=== PATIENT | male | born 1960 | race Caucasian/White ===

== ENCOUNTER 2018-05-06 08:11 | Day surgery (SDC) | payer BC, OTHER ==
[~2018-05-06 08:11] MED LIST: Lactated Ringers 1,000 ML IV SCH
[2018-05-06] MEDS ORDERED: Sodium Phosphate,Monobasic/Sodium Phosphate,Dibasic Enema 133 ML Bottle RECTAL ONE (08:55)
[2018-05-06] MEDS ORDERED: fentaNYL 100 MCG/2 ML SDV ONE (10:15)
[2018-05-06] MEDS ORDERED: Propofol 200 MG/20 ML SDV ONE ×2 (10:15→10:28)
[2018-05-06 11:36] VITALS: BP 135/93
--- NOTE | 2018-05-06 13:07 | OR ---
PREOPERATIVE DIAGNOSIS: Lower abdominal pain, blood in stool. POSTOPERATIVE DIAGNOSIS: Large pedunculated adenomatous polyp at 40 cm removed, sigmoid diverticulosis. PROCEDURE PROPOSED: Total flexible colonoscopy. PROCEDURE DONE: Total flexible colonoscopy with hot snare, polypectomy and tattooing. INDICATION: This is a 58-year-old gentleman, who has been having some lower abdominal pain and some blood streaked on his stools and he comes in now for recommended diagnostic colonoscopy. TECHNIQUE: The patient was brought to the endoscopy suite, placed in left lateral decubitus position. He was sedated per [employer] with propofol. The flexible video colonoscope was then passed transanal under visualization advanced to the cecum. Examination revealed normal ascending, transverse, and descending colon. In the sigmoid colon at about 40 cm had a very large bleeding friable, pedunculated, adenomatous polyp with a large long stalk. He had some bloody secretions around the area of the polyp. He also had sigmoid diverticulosis. I then brought in a snare to snare across the stalk and I removed the polyp and about 1 cm of normal stalk with cautery. I then grasped the polyp with a snare and brought it all the way out. It measured about 2.5 cm, but it was quite soft. I then went back in with the scope and the stalk still seemed to be very long. I removed another 1.5 cm of stalk with the hot snare technique and brought that piece out by grasping it with the snare. I then went back in the 3rd time with the scope and I tattooed the area, in case there was some malignancy in the polyp. It was pretty much right at 40 cm, tattooed 2 areas submucosally. Again, the sigmoid diverticulosis was noted. Upon bringing the scope out, the rectum was normal. The scope was then removed and left out. He tolerated the procedure well. FINAL IMPRESSION: 1. Large pedunculated adenomatous polyp at 40 cm, removed. 2. Sigmoid diverticulosis. PLAN: He will be sent a letter with pathology report. I think it is benign. I feel he needs a 1-year followup exam and every 5 years thereafter. SCM: 05/06/2018 10:49:36 MODL: 05/06/2018 12:57:43 /[id number]
--- NOTE | 2018-05-19 14:11 | LETTER ---
05/19/2018 Mariusz Palacios RE: MARIUSZ Camacho SAV : 1960 Dear Mr. Palacios: I finally received the report on the large polyp that was removed from your colon. They had sent this to the [facility] because there was concern about it, but fortunately there were no signs of any cancer. It was a large tubulovillous adenoma and there was an area of high-grade dysplasia in the polyp, meaning that it was in the process of transitioning into a colon cancer, but had not gotten to that stage yet. The stalk of the polyp was totally uninvolved with any of this indicating that everything has been completely removed and should not be a concern. However, because of the large size and the report on the polyp, I feel that you should have a 1 year followup exam to make sure everything has healed up appropriately and that you have not formed any new polyps. If everything is good on your next exam, you can go to an every 5 year surveillance thereafter. If you have any further questions regarding this, feel free to call. Respectfully,
== END 2018-05-06 12:20 | disposition home or self-care (01) ==
LOC: VM.SDS 08:11
PROVIDERS: ATTEND Surgery
DX: R10.30 Lower abdominal pain, unspecified (principal); K92.1 Melena; D12.5 Benign neoplasm of sigmoid colon; K57.30 Diverticulosis of large intestine without perforation or abscess without bleeding; I10 Essential (primary) hypertension; F17.290 Nicotine dependence, other tobacco product, uncomplicated; E78.2 Mixed hyperlipidemia; R73.01 Impaired fasting glucose; I25.10 Atherosclerotic heart disease of native coronary artery without angina pectoris; Z79.82 Long term (current) use of aspirin; Z79.899 Other long term (current) drug therapy
CPT/HCPCS: J2704; J3010; J7120

== ENCOUNTER 2021-03-01 09:58 | Emergency (ER) | payer OTHER ==
--- NOTE | 2021-03-01 10:19 | EDM.PDOC ---
ED HPI GENERAL MEDICAL PROBLEM - General Chief Complaint: Cardiovascular Problem Stated Complaint: ER Time Seen by Provider: 03/01/21 09:58 Source of Information: Reports: Patient History Limitations: Reports: No Limitations - History of Present Illness INITIAL COMMENTS - FREE TEXT/NARRATIVE: Javy is a 61 year old who presents to ER with complaints of palpitations. 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 Would feel like it was racing and then completely stop and then do it again. Denies any pain in his chest with this, no shortness of breath. Admits would find himself holding his breath when it occurred. No nausea. No lightheadedness. Went to the [facility] nurse who auscultated and told him his heart rate was fast and should be evaluated in the ER. After lying down on the cot, no longer feels the sensation. Has history of CAD with 2 stents. Diabetic. Did eat breakfast this am, minimal caffeine intake. Nonsmoker. Social use of alcohol Onset: Today, Sudden Duration: Minutes: Location: Reports: Chest Quality: Reports: Other (palpitations) Severity: Mild Improves with: Reports: None Worsens with: Reports: None Associated Symptoms: Denies: Confusion, Chest Pain, Cough, Fever/Chills, Loss of Appetite, Malaise, Nausea/Vomiting, Shortness of Breath, Syncope, Weakness - Related Data Allergies Allergy/AdvReac Type Severity Reaction Status Date / Time No Known Allergies Allergy Verified 05/06/18 08:49 Home Meds: Home Meds Aspirin [Halfprin] 81 mg PO DAILY 05/01/18 [History] Lisinopril 10 mg PO DAILY 05/01/18 [History] Rosuvastatin [Crestor] 10 mg PO DAILY 05/01/18 [History] Past Medical History - Past Health History Medical/Surgical History: Denies Medical/Surgical History HEENT History: Reports: None Cardiovascular History: Reports: CAD, High Cholesterol, Hypertension Respiratory History: Reports: None Gastrointestinal History: Reports: Other (See Below) Other Gastrointestinal History: inguinal hernia Genitourinary History: Reports: None Musculoskeletal History: Reports: None Neurological History: Reports: None Psychiatric History: Reports: None Endocrine/Metabolic History: Reports: Other (See Below) Other Endocrine/Metabolic History: IFG Hematologic History: Reports: None Immunologic History: Reports: None Oncologic (Cancer) History: Reports: None Dermatologic History: Reports: None - Past Surgical History Head Surgeries/Procedures: Reports: None HEENT Surgical History: Reports: None Cardiovascular Surgical History: Reports: Other (See Below) Other Cardiovascular Surgeries/Procedures: August 2005 Respiratory Surgical History: Reports: None GI Surgical History: Reports: None Male Surgical History: Reports: None Endocrine Surgical History: Reports: None Neurological Surgical History: Reports: None Musculoskeletal Surgical History: Reports: Other (See Below) Other Musculoskeletal Surgeries/Procedures:: multiple lumbar surgeries for herniated disc Oncologic Surgical History: Reports: None Dermatological Surgical History: Reports: None Social & Family History - Tobacco Use Tobacco Use Status *Q: Never Tobacco User ED ROS GENERAL - Review of Systems Review Of Systems: See Below Constitutional: Denies: Fever, Chills, Malaise, Weakness HEENT: Denies: Ear Pain, Sinus Problem, Throat Pain, Vertigo Respiratory: Denies: Shortness of Breath, Cough Cardiovascular: Reports: Palpitations. Denies: Chest Pain, Edema, Lightheadedness Endocrine: Denies: Fatigue GI/Abdominal: Denies: Abdominal Pain, Constipation, Diarrhea, Nausea, Vomiting : Reports: No Symptoms Musculoskeletal: Reports: No Symptoms Skin: Reports: No Symptoms Neurological: Denies: Dizziness, Headache, Weakness ED EXAM, GENERAL - Physical Exam Exam: See Below Exam Limited By: No Limitations General Appearance: Alert, WD/WN, No Apparent Distress Ears: Normal External Exam, Normal TMs Nose: Normal Inspection, Normal Mucosa, No Blood Throat/Mouth: Normal Inspection, Normal Oropharynx Head: Normocephalic Neck: Normal Inspection, Supple, Non-Tender Respiratory/Chest: No Respiratory Distress, Lungs Clear, Normal Breath Sounds Cardiovascular: Regular Rate, Rhythm GI/Abdominal: Normal Bowel Sounds, Soft, Non-Tender Extremities: Normal Inspection, No Pedal Edema Neurological: Alert, Oriented Skin Exam: Warm, Dry #1 Interpretation EKG Date: 03/01/21 Rhythm: Other (sinus tachycardia) [place]: Normal P-Wave: Present QRS: Normal ST-T: Normal Comparison: NA - No Prior EKG EKG Interpretation Comments: Did note one PVC while obtaining EKG Course - Orders/Labs/Meds Orders: Active Orders 24 hr Category Date Time Status EKG 12 Lead [EKG Documentation Completion] [RC] STAT Care 03/01/21 10:08 Active Labs: Laboratory Tests 03/01/21 03/01/21 03/01/21 Range/Units 10:20 10:20 10:20 WBC 5.5 (4.0-10.0) x10^3/uL RBC 4.73 (4.5-6.0) x10^6/uL Hgb 14.9 (14.0-18.0) g/dL Hct 42.3 (40.0-52.0) % MCV 89.4 (78.0-93.0) fL MCH 31.5 (26.0-32.0) pg MCHC 35.2 (32.0-36.0) g/dL RDW Coeff of Lucretia 13.0 (10.0-15.0) % Plt Count 244 (130-400) x10^3/uL Neut % (Auto) 56.2 (50.0-80.0) % Lymph % (Auto) 32.5 (25.0-50.0) % [place] % (Auto) 8.2 (2.0-11.0) % Eos % (Auto) 2.2 (0.0-4.0) % Baso % (Auto) 0.9 (0.2-1.2) % D-Dimer, Quantitative 0.44 (<=0.58) mg/LFEU Sodium 136 (136-145) mmol/L Potassium 4.8 (3.5-5.1) mmol/L Chloride 98 (98-107) mmol/L Carbon Dioxide 29 (21-32) mmol/L Anion Gap 13.8 (5-15) mmol/L BUN 20 H (7-18) mg/dL Creatinine 1.0 (0.70-1.30) mg/dL Est Cr Clr Drug Dosing TNP Estimated GFR (MDRD) > 60 Glucose 214 H (70-99) mg/dL Calcium 9.2 (8.5-10.1) mg/dL Corrected Calcium 9.0 (8.5-10.1) mg/dL Total Bilirubin 0.7 (0.2-1.0) mg/dL AST 25 (15-37) U/L ALT 47 (16-63) U/L Alkaline Phosphatase 64 (46-116) U/L Troponin I High Sens < 4 (<=76) ng/L Total Protein 7.5 (6.4-8.2) g/dL Albumin 4.2 (3.4-5.0) g/dL Globulin 3.3 Albumin/Globulin Ratio 1.27 Meds: Medications Discontinued Medications Generic Name Dose Route Start Last Admin Trade Name Jamie PRN Reason Stop Dose Admin Hydralazine HCl 10 mg 03/01/21 11:01 Hydralazine 20 Mg/Ml Sdv IVPUSH 03/01/21 11:02 ONETIME ONE - Re-Assessments/Exams Free Text/Narrative Re-Assessment/Exam: 03/01/21 10:26 Patient states "feels completely back to normal right now". No further palpitations. No chest pain, shortness of breath. 03/01/21 11:15 Chest xray is clear. Bosshelia is no longer here with patient and now shares that part of this could be stress. Has been overwhelmed as of late with his job, has several job titles with "questions and duties coming at me from all angles". Discussed need for holter monitor to rule out any arrhythmias. Call his primary care provider to be seen to discuss this or further stress test. Departure - Departure Time of Disposition: 11:18 Disposition: Home, Self-Care 01 Condition: Fair Clinical Impression: Palpitations with regular cardiac rhythm Instructions: Palpitations, [id number] Referrals: John Butts PA-C [Primary Care Provider] - Forms: ED Department Discharge Additional Instructions: 1. Rest today 2. Push fluids 3. Follow up as soon as able with John Butts to discuss holter monitor and stress test 4. Return if chest pain, shortness of breath or persistent palpitations recur - My Orders Last 24 Hours: My Active Orders 03/01/21 10:08 EKG 12 Lead [EKG Documentation Completion] [RC] STAT - Assessment/Plan Last 24 Hours: My Active Orders 03/01/21 10:08 EKG 12 Lead [EKG Documentation Completion] [RC] STAT
[2021-03-01 10:47] LABS: ANION GAP 13.8 mmol/L (5-15); CHLORIDE,CL 98 mmol/L (98-107); SODIUM,NA 136 mmol/L (136-145)
--- NOTE | 2021-03-01 11:00 | CR ---
[id number] RAD/RAD Chest PA And Lateral EXAM: RAD Chest PA And Lateral INDICATION: PALPATATIONS COMPARISON: None. DISCUSSION/IMPRESSION: Cardiomediastinal silhouette is normal in size and contour. Lungs are clear. No pleural effusion or pneumothorax. Miguelito Waters MD 03/01/21 [id number] Thank you for allowing us to participate in the care of your patient.
[2021-03-01] MEDS ORDERED: hydrALAZINE 20 MG/ML SDV IVPUSH ONE (11:01)
[2021-03-01 21:56] VITALS: BP 132/86; PULSE 88
== END 2021-03-01 11:30 | disposition home or self-care (01) ==
LOC: VM.ED 09:58
DX: R00.2 Palpitations (principal); E78.00 Pure hypercholesterolemia, unspecified; I10 Essential (primary) hypertension; Z79.82 Long term (current) use of aspirin; Z79.899 Other long term (current) drug therapy
CPT/HCPCS: 36415; 71046; 80053; 84484; 85025; 85379; 93005; 93010; 99284; 99285-25

== ENCOUNTER 2024-07-09 06:20 | Day surgery (SDC) | payer OTHER ==
[2024-07-09] MEDS: Lactated Ringers 1,000 ML IV SCH (06:46)
[2024-07-09] MEDS ORDERED: Propofol 200 MG/20 ML SDV ONE (07:31)
[2024-07-09] MEDS ORDERED: fentaNYL 100 MCG/2 ML SDV ONE (07:31)
[2024-07-09 08:48] VITALS: BP 106/72; PULSE 65
== END 2024-07-09 09:35 | disposition home or self-care (01) ==
LOC: VM.SDS 06:20
PROVIDERS: ATTEND Student in an Organized Health Care Education/Training Program
DX: Z12.11 Encounter for screening for malignant neoplasm of colon (principal); D12.3 Benign neoplasm of transverse colon; K63.5 Polyp of colon; D12.8 Benign neoplasm of rectum; Z86.0100 Personal history of colon polyps, unspecified; E11.9 Type 2 diabetes mellitus without complications; I10 Essential (primary) hypertension; E78.2 Mixed hyperlipidemia; I25.10 Atherosclerotic heart disease of native coronary artery without angina pectoris; Z79.84 Long term (current) use of oral hypoglycemic drugs; Z79.82 Long term (current) use of aspirin; Z79.899 Other long term (current) drug therapy
CPT/HCPCS: 00811; 82947; J2704; J3010; J7120